=== PATIENT | male | born 1950 | race Caucasian/White ===

== ENCOUNTER 2017-11-12 13:22 | Day surgery (SDC) | payer MEDICARE, BC ==
[~2017-11-12] VITALS: Ht 182.9 cm; Wt 89.1 kg
[2017-11-12 13:35] VITALS: BP 138/86
[2017-11-12] MEDS ORDERED: EZET10TA14 PO (13:42)
[2017-11-12] MEDS ORDERED: NIA500ERT PO (13:43)
[2017-11-12] MEDS ORDERED: LANS30CA37 PO (13:43)
[2017-11-12] MEDS ORDERED: B12/1TAB PO (13:45)
[2017-11-12] MEDS ORDERED: [UNRECOGNIZED DRUG - OTHER] (13:49)
[2017-11-12] MEDS ORDERED: VIT1CAPS46 (13:50)
[2017-11-12] MEDS ORDERED: fentaNYL/PF 50MCG/1 ML 2ML syringe ONE (13:51)
[2017-11-12] MEDS ORDERED: MIDAZolam 5mg/5ml vial ONE (13:51)
[2017-11-12 15:27] VITALS: BP 120/77
[2017-11-12 15:37] VITALS: BP 125/74
[2017-11-12 15:47] VITALS: BP 122/79
[2017-11-12 16:07] VITALS: BP 119/76
== END 2017-11-12 16:10 | disposition home or self-care (01) ==
LOC: GI LAB 13:22
PROVIDERS: ATTEND Internal Medicine Gastroenterology
DX: D12.5 Benign neoplasm of sigmoid colon (principal); K64.8 Other hemorrhoids; K57.30 Diverticulosis of large intestine without perforation or abscess without bleeding; K63.89 Other specified diseases of intestine; I10 Essential (primary) hypertension; K21.9 Gastro-esophageal reflux disease without esophagitis; E78.5 Hyperlipidemia, unspecified; Z86.010 Personal history of colon polyps; Z86.73 Personal history of transient ischemic attack (TIA), and cerebral infarction without residual deficits; Z87.891 Personal history of nicotine dependence; Z88.1 Allergy status to other antibiotic agents; Z88.8 Allergy status to other drugs, medicaments and biological substances; Z79.899 Other long term (current) drug therapy
CPT/HCPCS: 45380; 45385; 45398; 99153; G0500; J2250; J3010; J7030; 88305; A4620

== ENCOUNTER 2018-01-28 13:03 | Emergency (ER) | payer MEDICARE, BC ==
[~2018-01-28] VITALS: Ht 182.9 cm; Wt 89.0 kg
[~2018-01-28 13:03] MED LIST: B12/1TAB PO; EZET10TA14 PO; LANS30CA37 PO; NIA500ERT PO; VIT1CAPS46; [UNRECOGNIZED DRUG - OTHER]
[2018-01-28 13:28] VITALS: BP 136/88
[2018-01-28] MEDS ORDERED: sucralfate 1gm/10ml UD suspension PO ONE (13:40)
[2018-01-28] MEDS ORDERED: pantoprazole 40mg Tablet.DR PO ONE (13:40)
[2018-01-28] MEDS ORDERED: LIDOcaine Viscous 15ml cup MM ONE (13:40)
== END 2018-01-28 14:37 | disposition home or self-care (01) ==
LOC: ER 13:03
DX: R07.89 Other chest pain (principal); R06.02 Shortness of breath; Z87.891 Personal history of nicotine dependence; Z88.8 Allergy status to other drugs, medicaments and biological substances; Z79.899 Other long term (current) drug therapy
CPT/HCPCS: 36415; 84484; 93005; 99285

== ENCOUNTER 2018-02-18 12:57 | Inpatient (IN) | payer MEDICARE, BC ==
[~2018-02-18] VITALS: Ht 182.9 cm; Wt 87.3 kg
[2018-02-18] VITALS (10 sets, daily range): BP systolic 118–156; BP diastolic 62–80
[2018-02-18] MEDS ORDERED: LANS15CA18 PO (14:12)
[2018-02-18] MEDS ORDERED: HYDROcodone/acetaminophen 5mg/325mg tablet PO PRN (14:15)
[2018-02-18] MEDS ORDERED: HYDROmorphone inj. 0.5 MG/0.5 ML DISP.SYRIN IV PRN ×2 (14:15)
[2018-02-18] MEDS ORDERED: diphenhydrAMINE 25mg capsule PO PRN (14:15)
[2018-02-18] MEDS ORDERED: diphenhydrAMINE 50 mg/ml inj IV PRN (14:15)
[2018-02-18] MEDS ORDERED: bisacodyl 10mg suppository rectal RC PRN (14:15)
[2018-02-18] MEDS ORDERED: HYDROcodone/acetaminophen 10/325mg tab PO PRN ×3 (14:15→23:15)
[2018-02-18] MEDS ORDERED: acetaminophen 325mg tablet PO PRN ×3 (14:15→20:10)
[2018-02-18] MEDS ORDERED: metoclopramide 5 mg/ml inj IV PRN (14:15)
[2018-02-18] MEDS ORDERED: morphine 4 MG/ML inj SYRINge IV PRN ×3 (14:15→20:10)
[2018-02-18] MEDS ORDERED: ondansetron/PF 4mg/2ml inj IV PRN (14:15)
[2018-02-18] MEDS ORDERED: mag hydrox/Alum hydrox/simeth 30ml oral suspension PO PRN (14:15)
[2018-02-18] MEDS ORDERED: magnesium hydroxide 30ml (MOM) UD suspension PO PRN (14:15)
[2018-02-18] MEDS ORDERED: pantoprazole 40 MG vial IV SCH (14:15)
[2018-02-18] MEDS ORDERED: prevagen (14:16)
[2018-02-18] MEDS ORDERED: VIT1CAPS46 (14:19)
[2018-02-18] MEDS ORDERED: ASPI-416 (14:20)
[2018-02-18] MEDS: normal saline 1000ml 1,000 ML IV SCH (15:00)
[2018-02-18 15:36] LABS: BASOPHILS # (AUTO) 0.1 X10'3 (0-0.2); BASOPHILS % (AUTO) 0.8 % (0-1); EOSINOPHILS # (AUTO) 0.3 X10'3 (0-0.9); EOSINOPHILS % (AUTO) 3.8 % (0-6); HEMATOCRIT 43.2 % (42.0-52.0); HEMOGLOBIN 14.8 g/dl (14.0-17.9); LYMPHOCYTES # (AUTO) 2.1 X10'3 (1.1-4.8); LYMPHOCYTES % (AUTO) 28.3 % (21-51); MEAN CORPUSCULAR HEMOGLOBIN 32.4 PG (27.0-31.0); MEAN CORPUSCULAR HGB CONC 34.3 % (33.0-36.5); MEAN CORPUSCULAR VOLUME 94.3 FL (78-98); MONOCYTES # (AUTO) 0.6 X10'3 (0-0.9); MONOCYTES % (AUTO) 8.1 % (2-12); NEUTROPHILS # (AUTO) 4.3 X10'3 (1.8-7.7); PLATELET COUNT 231 X10'3 (140-440); RED BLOOD COUNT 4.58 X10'6 (4.70-6.10); WHITE BLOOD COUNT 7.3 X10'3 (4.5-11.0)
[2018-02-18 15:48] LABS: PARTIAL THROMBOPLASTIN TIME 27 SECONDS (22-32); PROTHROMBIN TIME 10.1 SECONDS (9.0-12.0)
[2018-02-18 15:52] LABS: HEMOGLOBIN A1C 5.8 % (4.5-6.2)
[2018-02-18 16:02] LABS: ALANINE AMINOTRANSFERASE 27 U/L (12-78); ALBUMIN 3.6 G/DL (3.4-5.0); ALBUMIN/GLOBULIN RATIO 1.2 (1.1-1.5); ALKALINE PHOSPHATASE 52 IU/L (46-116); ANION GAP 8 (8-16); ASPARTATE AMINO TRANSFERASE 13 U/L (10-37); BILIRUBIN,TOTAL 0.5 MG/DL (0.1-1.0); BLOOD UREA NITROGEN 21 MG/DL (7-18); BUN/CREATININE RATIO 19.8 (5.4-32.0); CALCIUM 9.3 MG/DL (8.5-10.1); CHLORIDE 107 MMOL/L (99-107); CREATININE 1.06 MG/DL (0.60-1.10); GLUCOSE 84 MG/DL (70-104); SODIUM 143 MMOL/L (135-145); TOTAL CARBON DIOXIDE 27.6 MMOL/L (24-32); TOTAL PROTEIN 6.7 G/DL (6.4-8.2); eGFR 69 ML/MIN
[2018-02-18 16:07] LABS: LIPASE 150 U/L (73-393); MAGNESIUM 2.1 MG/DL (1.5-2.4); PHOSPHORUS 3.8 MG/DL (2.3-4.5); TROPONIN I 0.06 NG/ML (0.0-0.05)
[2018-02-18 16:26] LABS: CLARITY,URINE CLEAR (Clear); COLOR,URINE YELLOW (Yellow); GLUCOSE, URINE NEGATIVE (Neg); KETONES,URINE NEGATIVE (Neg); LEUKOCYTE ESTERASE ,URINE NEGATIVE (Neg); NITRITES, URINE NEGATIVE (Neg); OCCULT BLOOD,URINE NEGATIVE (Neg); PROTEIN,URINE NEGATIVE (Neg); UROBILINOGEN,URINE 0.2 E.U/dL (0.2-1.0)
[2018-02-18 16:39] LABS: UA COLLECTION TYPE NON-SPECIFIED
[2018-02-18] MEDS ORDERED: nitroGLYCERIN-Tridil 50MG/D5W 250 ML IV ONE (17:18)
[2018-02-18] MEDS ORDERED: iohexol 350MG/ML 100ml bottle IV ONE (17:18)
[2018-02-18] MEDS ORDERED: heparin 1,000unit/ml 10ml vial 10 ML ONE (17:18)
[2018-02-18] MEDS ORDERED: iohexol 350 MG/ML 50ML vial IV ONE (17:18)
[2018-02-18] MEDS ORDERED: lidocaine 1%/epinephrine 1:100,000 injection 50ml vial ONE (17:19)
[2018-02-18] MEDS ORDERED: midazolam 2 mg/2 ml injection ONE (17:47)
[2018-02-18] MEDS ORDERED: fentaNYL/PF 50MCG/1 ML 2ML syringe ONE (17:47)
[2018-02-18] MEDS ORDERED: iohexol 350 MG/1 ML 200ml bottle ONE (18:08)
[2018-02-18] MEDS ORDERED: atropine 0.1mg/ml 10ml syringe ONE (18:13)
[2018-02-18] MEDS ORDERED: clopidogrel 300mg tablet ONE (18:24)
[2018-02-18] MEDS ORDERED: HYDROmorphone 1 mg/ml syringe ONE (18:49)
[2018-02-18] MEDS ORDERED: proCHLORperazine 10 MG/2 ml inj IV PRN (20:10)
[2018-02-18] MEDS ORDERED: morphine 10mg/ml inj. IV PRN (20:10)
[2018-02-18] MEDS ORDERED: OXAZEpam 15mg capsule PO PRN (20:15)
[2018-02-18] MEDS ORDERED: cyclobenzaprine 10mg tablet PO PRN (20:15)
[2018-02-18] MEDS ORDERED: temazepam 15mg capsule PO PRN (21:00)
[2018-02-18] MEDS: docusate sod 100mg capsule PO SCH (21:35)
[2018-02-18] MEDS: magnesium hydroxide 30ml (MOM) UD suspension PO SCH (21:35)
[2018-02-19] VITALS (21 sets, daily range): BP systolic 107–158; BP diastolic 61–93
[2018-02-19] MEDS: HYDROcodone/acetaminophen 10/325mg tab PO PRN ×2 (00:20→09:47)
[2018-02-19 02:33] LABS: BASOPHILS % (AUTO) 0.3 % (0-1); EOSINOPHILS # (AUTO) 0.1 X10'3 (0-0.9); EOSINOPHILS % (AUTO) 1.3 % (0-6); HEMATOCRIT 41.5 % (42.0-52.0); HEMOGLOBIN 14.1 g/dl (14.0-17.9); LYMPHOCYTES % (AUTO) 8.7 % (21-51); MEAN CORPUSCULAR HEMOGLOBIN 32.3 PG (27.0-31.0); MEAN CORPUSCULAR HGB CONC 34.1 % (33.0-36.5); MEAN CORPUSCULAR VOLUME 94.7 FL (78-98); MEAN PLATELET VOLUME 8.2 FL (7.4-10.4); MONOCYTES # (AUTO) 0.6 X10'3 (0-0.9); MONOCYTES % (AUTO) 5.4 % (2-12); NEUTROPHILS # (AUTO) 9.2 X10'3 (1.8-7.7); NEUTROPHILS % (AUTO) 84.3 % (42-75); PLATELET COUNT 247 X10'3 (140-440); RED BLOOD COUNT 4.38 X10'6 (4.70-6.10); RED CELL DISTRIBUTION WIDTH 13.6 % (11.5-14.5); WHITE BLOOD COUNT 10.9 X10'3 (4.5-11.0)
[2018-02-19 02:49] LABS: ALANINE AMINOTRANSFERASE 21 U/L (12-78); ALBUMIN 3.4 G/DL (3.4-5.0); ALKALINE PHOSPHATASE 58 IU/L (46-116); ANION GAP 10 (8-16); ASPARTATE AMINO TRANSFERASE 23 U/L (10-37); BILIRUBIN,TOTAL 0.5 MG/DL (0.1-1.0); BLOOD UREA NITROGEN 16 MG/DL (7-18); BUN/CREATININE RATIO 17.2 (5.4-32.0); CALCIUM 8.6 MG/DL (8.5-10.1); CHLORIDE 107 MMOL/L (99-107); CHOL/HDL RATIO 4.5 (0.00-4.99); CHOLESTEROL 178 MG/DL (0-200); CREATININE 0.93 MG/DL (0.60-1.10); GLUCOSE 116 MG/DL (70-104); HDL CHOLESTEROL 40 MG/DL (35-60); LDL CHOLESTEROL 125 MG/DL (50-100); POTASSIUM 4.1 MMOL/L (3.5-5.1); SODIUM 141 MMOL/L (135-145); TOTAL CARBON DIOXIDE 23.8 MMOL/L (24-32); TOTAL PROTEIN 6.8 G/DL (6.4-8.2); TRIGLYCERIDES 73 MG/DL (20-135); eGFR 81 ML/MIN
[2018-02-19] MEDS: normal saline 1000ml 1,000 ML IV SCH (04:36)
[2018-02-19] MEDS ORDERED: nitroGLYCERIN 0.2mg/hour patch TD SCH (08:00)
[2018-02-19] MEDS ORDERED: non-formulary drug (Lansoprazole 1 CAP) PO SCH (08:00)
[2018-02-19] MEDS: clopidogrel 75mg tablet PO SCH (08:38)
[2018-02-19] MEDS: aspirin 325mg tablet PO SCH (08:39)
[2018-02-19] MEDS: docusate sod 100mg capsule PO SCH ×2 (08:39→20:18)
[2018-02-19] MEDS: pantoprazole 40mg Tablet.DR PO SCH (08:39)
[2018-02-19] MEDS: ezetimibe 10mg tablet PO SCH (08:39)
[2018-02-19] MEDS: magnesium hydroxide 30ml (MOM) UD suspension PO SCH (20:17)
[2018-02-19] MEDS ORDERED: niacin 500mg ER (Niaspan) tablet PO SCH (21:00)
[2018-02-20 02:00] VITALS: BP 115/70
[2018-02-20 04:28] LABS: BASOPHILS % (AUTO) 0.6 % (0-1); EOSINOPHILS # (AUTO) 0.3 X10'3 (0-0.9); EOSINOPHILS % (AUTO) 3.4 % (0-6); HEMATOCRIT 42.1 % (42.0-52.0); HEMOGLOBIN 14.4 g/dl (14.0-17.9); LYMPHOCYTES # (AUTO) 1.9 X10'3 (1.1-4.8); LYMPHOCYTES % (AUTO) 22.4 % (21-51); MEAN CORPUSCULAR HEMOGLOBIN 32.6 PG (27.0-31.0); MEAN CORPUSCULAR HGB CONC 34.2 % (33.0-36.5); MEAN CORPUSCULAR VOLUME 95.4 FL (78-98); MEAN PLATELET VOLUME 8.1 FL (7.4-10.4); MONOCYTES % (AUTO) 12.6 % (2-12); NEUTROPHILS # (AUTO) 5.1 X10'3 (1.8-7.7); PLATELET COUNT 208 X10'3 (140-440); RED BLOOD COUNT 4.41 X10'6 (4.70-6.10); RED CELL DISTRIBUTION WIDTH 13.8 % (11.5-14.5); WHITE BLOOD COUNT 8.3 X10'3 (4.5-11.0)
[2018-02-20 04:53] LABS: ALANINE AMINOTRANSFERASE 24 U/L (12-78); ALBUMIN 3.2 G/DL (3.4-5.0); ALKALINE PHOSPHATASE 57 IU/L (46-116); ANION GAP 4 (8-16); ASPARTATE AMINO TRANSFERASE 48 U/L (10-37); BILIRUBIN,TOTAL 0.6 MG/DL (0.1-1.0); BLOOD UREA NITROGEN 12 MG/DL (7-18); BUN/CREATININE RATIO 8.2 (5.4-32.0); CALCIUM 8.8 MG/DL (8.5-10.1); CHLORIDE 106 MMOL/L (99-107); CREATININE 1.46 MG/DL (0.60-1.10); GLUCOSE 105 MG/DL (70-104); POTASSIUM 4.4 MMOL/L (3.5-5.1); SODIUM 142 MMOL/L (135-145); TOTAL CARBON DIOXIDE 32.5 MMOL/L (24-32); TOTAL PROTEIN 6.4 G/DL (6.4-8.2); eGFR 48 ML/MIN
[2018-02-20 07:00] VITALS: BP 120/76
[2018-02-20] MEDS: ezetimibe 10mg tablet PO SCH (08:18)
[2018-02-20] MEDS: docusate sod 100mg capsule PO SCH (08:18)
[2018-02-20] MEDS: clopidogrel 75mg tablet PO SCH (08:18)
[2018-02-20] MEDS: aspirin 325mg tablet PO SCH (08:18)
[2018-02-20] MEDS: pantoprazole 40mg Tablet.DR PO SCH (08:18)
[2018-02-20] MEDS ORDERED: isosorbide mononitrate 30mg tab.SR.24H PO SCH (08:40)
[2018-02-20] MEDS ORDERED: CLOP75TA35 PO (10:31)
[2018-02-20] MEDS ORDERED: NITR0.4T51 SL (10:31)
[2018-02-20] MEDS ORDERED: ISOS30TA6 PO (10:31)
== END 2018-02-20 13:30 | disposition home or self-care (01) | DRG 247 ==
LOC: PCU 3S 12:57 → ICU 2S 19:35 → PCU 3S 02-19 16:01
PROVIDERS: ADMIT Internal Medicine Cardiovascular Disease; ATTEND Internal Medicine
PROC: 4A023N7 Measurement of Cardiac Sampling and Pressure, Left Heart, Percutaneous Approach (ICD-10-PCS; principal; 2018-02-18)
PROC: 027034Z Dilation of Coronary Artery, One Artery with Drug-eluting Intraluminal Device, Percutaneous Approach (ICD-10-PCS; 2018-02-18)
PROC: B2111ZZ Fluoroscopy of Multiple Coronary Arteries using Low Osmolar Contrast (ICD-10-PCS; 2018-02-18)
PROC: B2151ZZ Fluoroscopy of Left Heart using Low Osmolar Contrast (ICD-10-PCS; 2018-02-18)
DX: I25.110 Atherosclerotic heart disease of native coronary artery with unstable angina pectoris (principal); K21.9 Gastro-esophageal reflux disease without esophagitis; E78.5 Hyperlipidemia, unspecified; I10 Essential (primary) hypertension; M19.90 Unspecified osteoarthritis, unspecified site; Z79.02 Long term (current) use of antithrombotics/antiplatelets; Z79.82 Long term (current) use of aspirin; Z88.1 Allergy status to other antibiotic agents; Z88.8 Allergy status to other drugs, medicaments and biological substances; Z79.899 Other long term (current) drug therapy; Z87.891 Personal history of nicotine dependence; Z82.3 Family history of stroke; Z84.89 Family history of other specified conditions
CPT/HCPCS: 93458; C9600; 36415; 80053; 80061; 81003; 83036; 83690; 83735; 83880; 84100; 84443; 84484; 85025; 85347; 85610; 85730; 87070; 93005; 99152; 99153; A4620; A6257; A6258; A6449; C1725; C1769; C1874; C9113; J0461; J1170; J1644; J2250; J2270; J2405; J3010; J3490; J7030; Q9967